=== PATIENT | male | born 1980 | race Two or more races ===

== ENCOUNTER 2024-10-02 16:34 | Emergency (ER) | payer SELFPAY ==
[2024-10-02 16:36] VITALS: BMI 48.2
[2024-10-02 17:30] VITALS: BP 175/115; BP 189/127; PULSE 85; RESP 20; TEMP 38; O2SAT 98
--- NOTE | 2024-10-02 18:20 | XR_ITS ---
Examination: CT soft tissue neck, with intravenous contrast. 2-D coronal reconstructions. 2-D sagittal reconstructions. Date and time of exam :October 02, 2024 at 0949 hrs. Indications: Swelling left side of the neck with fever and chills today CTDI: vol (mGy):13.2 DLP: (mGycm):264 Technique: 1.25 mm axial sections of the neck of the obtained. Coronal and sagittal reconstructions have been obtained. Intravenous contrast administered 50 cc Isovue-370. Low dose protocols were performed. One or more of the following dose reduction techniques were used; automated exposure control, adjustment of the mA and/or KV according to patient size, use of iterative reconstruction technique. Findings: Enlargement and marked edema surrounding the submandibular gland Reactive submandibular and left carotid triangle lymph nodes The larynx appears normal No tonsillar abscess No thyroid nodules Normal epiglottis Impression: Significant left submandibular sialoadenitis
--- NOTE | 2024-10-02 18:21 | EDRME_ITS ---
Rapid Medical Screening Exam [facility] Arrival date/time: 10/02/24 16:34 44M with no significant PMH presents to ED with several days of throat/neck swelling, fevers/chills, and some difficulty swallowing. Chief Complaint: Dental/Oral/Throat Time Seen by Provider: 10/02/24 17:08 Vital signs: Vital Signs Temperature 100.4 F 10/02/24 17:30 Pulse Rate 85 10/02/24 17:30 Respiratory Rate 20 10/02/24 17:30 Blood Pressure 189/127 H 10/02/24 17:30 Pulse Oximetry (%) 98 10/02/24 17:30 Oxygen Delivery Method Room Air 10/02/24 17:30
[2024-10-02 18:59] LABS: Basophils % (Auto) 0 % (0-2.5); Eosinophils # (Auto) 0.2 Thou/mm3 (0.0-0.5); Eosinophils % (Auto) 1 % (0-10); Hematocrit 45.9 % (41.0-53.0); Hemoglobin 15.3 g/dL (13.5-16.0); Immature Granulocytes % (Auto) 0 % (0-0); Immature Granulocytes Auto 0.05 Thou/mm3 (0.00-0.00); Lymphocytes # (Auto) 2.5 Thou/mm3 (1.0-4.8); Lymphocytes % (Auto) 18 % (10-50); Mean Corpuscular HGB Conc 33.3 g/dl (31.0-37.0); Mean Corpuscular Hemoglobin 27.4 pg (25.0-35.0); Mean Corpuscular Volume 82 fL (80-100); Monocytes # (Auto) 1.1 Thou/mm3 (0.0-0.8); Monocytes % (Auto) 8 % (0-12); Neutrophils # (Auto) 9.8 Thou/mm3 (1.8-7.7); Neutrophils % (Auto) 71 % (37-80); Nucleated Red Blood Cell % 0 /100 WBC (0); Platelet Count 300 Thou/mm3 (140-440); RDW Standard Deviation 40.9 fL (35.1-43.9); Red Blood Count 5.59 Miln/mm3 (4.50-5.90); White Blood Count 13.8 Thou/mm3 (3.8-10.6)
[2024-10-02 19:26] LABS: Strep A Rapid Negative (Negative)
[2024-10-02 19:30] LABS: Alanine Aminotransferase 49 U/L (10-49); Albumin, Serum 4.5 gm/dL (3.5-5.0); Albumin/Globulin Ratio 1.3 (1.2-2.2); Alkaline Phosphatase 89 U/L (46-116); Anion Gap 7 (7-16); Aspartate Amino Transferase 24 U/L (0-34); BUN/Creatinine Ratio 16 Ratio (12-20); Bilirubin,Total 0.4 mg/dL (0.3-1.2); Blood Urea Nitrogen 13 mg/dL (9-23); Calcium 9.5 mg/dL (8.3-10.6); Calcium (Corrected) 9.5 mg/dL (8.5-10.1); Carbon Dioxide 27.8 mMol/L (20.0-31.0); Chloride 102 mMol/L (98-107); Creatinine (Component) 0.8 mg/dL (0.6-1.3); Estimated Creatinine Clearance 147.6 mL/min (>60); Globulin 3.6 gm/dL (2.3-3.5); Glucose 103 mg/dL (74-106); Osmolality,Calculated 273 (275-295); Potassium 4.3 mMol/L (3.4-5.1); Procalcitonin 0.07 ng/ml (0.0-0.49); Sodium 137 mMol/L (136-145); Total Protein 8.1 gm/dL (5.7-8.2); eGFR > 60 See Note
[2024-10-02] MEDS: KETOROLAC INJ 30 MG/ML VIAL IVP (20:58)
--- NOTE | 2024-10-02 23:11 | PD.EDDENTL ---
ED Dental RME/HPI General Chief complaint: Dental/Oral/Throat Stated complaint: LUMP TO THROAT Time Seen by Provider: 10/02/24 17:08 Arrival date/time: 10/02/24 16:34 RME / HPI RME / HPI Narrative: 44M with no significant PMH presents to ED with several days of throat/neck swelling, fevers/chills, and some difficulty swallowing. Swelling was noted for the last 1 to 2 days. Patient denies any difficulty swallowing. Denies any fever denies any other complaints. No medication was taken prior to arrival Related Data Previous Rx's ?Medication ?Instructions ?Recorded clindamycin HCl 300 mg capsule 300 mg PO TID #21 caps 10/02/24 ibuprofen 800 mg tablet 800 mg PO TID PRN pain #30 tabs 10/02/24 lisinopril 10 mg tablet 10 mg PO QDAY #30 tabs 10/02/24 Allergies Allergy/AdvReac Type Severity Reaction Status Date / Time No Known Allergies Allergy Verified 10/02/24 16:36 Review of Systems Review of Systems Narrative Review of Systems: Review of system reviewed and within normal limits except mentioned in HPI ED Exam Narrative Physical exam: VITAL SIGNS: Reviewed. GENERAL APPEARANCE: Alert and interactive, follows commands, no acute distress, HEAD AND FACE: Non-traumatic. ENT: PERRL, pink conjunctivitis, eyelid no trauma, Mucous membrane moist.+ Swelling noted on the left submandibular area, no redness noted slightly tender nonfluctuant NECK: Supple, nontender, no nuchal rigidity. CHEST: No tenderness, no crepitus, no paradoxical movement, no retractions. LUNGS: Clear, well ventilated, symmetric, no rales, no wheezing, no ronchi, no stridor, good breath sounds bilaterally. HEART: Regular rate, regular rhythm, no murmur, no gallops. ABDOMEN: Soft, positive bowel sounds, nondistended, no guarding, nontender, no rebound, no masses, RECTAL: Deferred. GENITAL: Deferred. NEUROLOGICAL: Gross motor function intact sensory function intact, Appropriate for age. MUSCULOSKELETAL: low back nontender, full range of motion. EXTREMITIES: Nontender, full range of motion. SKIN: Color pink, dry, no rash, no lacerations, no abrasions, no contusions. LYMPHATICS: Deferred. Course Quality Measures none Orders Category Date Time Status CT Screening NOW Care 10/02/24 18:20 Active Insert IV NOW Care 10/02/24 18:[address] soft tissue neck w con Stat Exams 10/02/24 18:20 Completed CBC Stat Lab 10/02/24 18:43 Completed CMP [Comprehensive Metabolic Panel] Stat Lab 10/02/24 18:43 Completed Lactate (Lactic Acid) Stat Lab 10/02/24 18:43 Completed Procalcitonin Stat Lab 10/02/24 18:43 Completed Strep A Rapid Stat Lab 10/02/24 18:40 Completed Clindamycin [Cleocin] Med 10/02/24 23:07 Discontinued 300 mg PO X1 ONE Ketorolac Inj [Toradol Inj] Med 10/02/24 18:20 Discontinued 30 mg IVP X1 ONE cloNIDine HCL [Catapres] Med 10/02/24 23:07 Discontinued 0.1 mg PO X1 ONE Vital Signs Vital signs: Vital Signs Temperature 100.4 F 10/02/24 17:30 Pulse Rate 85 10/02/24 17:30 Respiratory Rate 20 10/02/24 17:30 Blood Pressure 189/127 H 10/02/24 17:30 Pulse Oximetry (%) 98 10/02/24 17:30 Oxygen Delivery Method Room Air 10/02/24 17:30 Dental / Oral MDM Narrative MDM Narrative:: 44M with no significant PMH presents to ED with several days of throat/neck swelling, fevers/chills, and some difficulty swallowing. Swelling was noted for the last 1 to 2 days. Patient denies any difficulty swallowing. Denies any fever denies any other complaints. No medication was taken prior to arrival Laboratory workup is significant for slight leukocytosis 13.8. The rest of the labs unremarkable. CT scan of the neck soft tissue showed Significant left submandibular sialoadenitis Patient was also noted to have elevated blood pressure. Patient was given clonidine p.o., clindamycin p.o., and Toradol. Patient will be sent home on clindamycin and lisinopril. Patient was advised to closely follow-up with PCP for continued management of his blood pressure. And to monitor the resolution of the sialoadenitis. Patient agrees with the plan. Patient data External records reviewed:: None Clinical information provided by:: patient Social determinants that could affect healthcare access:: none Patient has the following chronic illnesses:: None How is presenting disease/condition affected by chronic disease/condition?: no chronic disease Evaluation data The following diagnostics were reviewed and interpreted by me:: lab results and radiology exam(s) Lab and/or radiology exams considered but not ordered:: None Interpretation Summary: See MDM results Medications / Prescriptions Medications or Prescriptions considered but not ordered:: None Medication administrations:: Medication Administration History Discontinued Medications Clindamycin HCl (Clindamycin 150 Mg Capsule) 300 mg PO X1 ONE Stop: 10/02/24 23:08 Clonidine (Clonidine Hcl 0.1 Mg Tablet) 0.1 mg PO X1 ONE Stop: 10/02/24 23:08 Ketorolac Tromethamine (Ketorolac Inj 30 Mg/Ml Vial) 30 mg IVP X1 ONE Stop: 10/02/24 18:21 Last Admin: 10/02/24 20:58 Dose: 30 mg Documented By: YENNY Toradol IM, clonidine and clindamycin Consultations Consultation(s) initiated? (list below): No Diagnosis Dental Differential Diagnosis: dental caries and dental abscess Most likely diagnosis given after review of the tests above:: Sialoadenitis, hypertension Admission Indicated Admission indicated?: not indicated Admission Request Was there a request for admission?: No Admission Attestation Admission request attestation: Stable Disposition Plan Disposition Plan: Discharge Discharge Attestation Discharge Attestation: The patient and all family members were given an opportunity to ask questions and understood the discharge instructions. Discharge instructions specifically effects, indications for sooner follow up or return to the emergency department, and the expected course of current diagnosis. Patient condition: Stable Discharge Plan Plan Patient Disposition: HOME (Self Care) Disposition Comment: Stable Prescriptions/Referrals Prescriptions/Med Rec: New clindamycin HCl 300 mg capsule 300 mg PO TID Qty: 21 0RF ibuprofen 800 mg tablet 800 mg PO TID PRN (Reason: pain) Qty: 30 0RF lisinopril 10 mg tablet 10 mg PO QDAY Qty: 30 0RF Referrals: No Primary/Family,Physician [Primary Care Provider] - In 1 week Problem List Clinical Impression: Acute sialoadenitis, High blood pressure Patient/Caregiver Discharge Instructions Discharge Activity: activity as tolerated Education Materials: ED High Blood Pressure ..., ED Salivary Gland Swelling ... Additional Instructions: Thank you for the opportunity for serving you today. You are stable for discharged . You are advised to: Follow-up with your PCP in 1 to 2 days, make sure you mention this to your doctor about your blood pressure. You are started on lisinopril 10 mg daily. I gave you 30 tablets only but I wanted you to follow-up with your PCP for continue treatment of your blood pressure. Return to ED for worsening of symptoms Increase oral fluids Take medication as prescribed Apply warm compress to the swelling your submandibular area for 15 minutes 3 times a day as needed Print Language: Uzbek Stand Alone Forms: Marii Award Info., Patient Portal Info Letter PA/DIRECTOR CORPORATE COMMUNICATIONS Supervising Physician HÉCTOR/LUZ MARIA Supervising Physician: MD Isaiah
[2024-10-02 23:23] VITALS: BP 189/127; PULSE 85
[2024-10-02] MEDS: cloNIDine HCL 0.1 MG TABLET PO (23:23)
[2024-10-02] MEDS: CLINDAMYCIN 150 MG CAPSULE 300 MG PO (23:23)
== END 2024-10-02 23:30 | disposition home or self-care (01) ==
PROVIDERS: Physician Assistant; Emergency Provider Emergency Medicine
DX: K11.21 Acute sialoadenitis (principal); R03.0 Elevated blood-pressure reading, without diagnosis of hypertension
CPT/HCPCS: 36415; 70491; 80053; 83605; 84145; 85025; 87651; 96374; 99285; A4649; J1885; Q9967; A9270